=== PATIENT | male | born 1980 | race Caucasian/White ===

== ENCOUNTER 2018-09-17 16:44 | Emergency (ER) | payer OTHER ==
[~2018-09-17] VITALS: Ht 180.3 cm; Wt 68.0 kg
[~2018-09-17 16:44] MED LIST: AMLO5 PO; BUME1 PO; CHLO10 PO; CIPR500 PO; CITA20 PO; FOLI1 PO; FURO40 PO; LEVSOD25 PO; METO50 PO; MULVITB&C PO; NADOLOL; OMEP40CA12 PO; OXYC5 PO; PANT40 PO; SPIR25 PO
== END 2018-09-17 18:12 | disposition home or self-care (01) ==
LOC: ER 16:44
DX: S61.211A Laceration without foreign body of left index finger without damage to nail, initial encounter (principal); W45.8XXA Other foreign body or object entering through skin, initial encounter; Z79.899 Other long term (current) drug therapy; E03.9 Hypothyroidism, unspecified; F17.200 Nicotine dependence, unspecified, uncomplicated
CPT/HCPCS: 12002; 90471; 90714; 99282-25